=== PATIENT | male | born 1965 | race American Indian/Alaskan Native ===

== ENCOUNTER 2021-10-01 13:33 | Emergency (ER) | payer OTHER ==
[2021-10-01 13:45] VITALS: BP 160/77
--- NOTE | 2021-10-01 15:07 | Emergency Department Report ---
ED Headache HPI - General Chief Complaint: Headache Stated Complaint: HEADACES FOR 6 MONTHS Source: patient Exam Limitations: no limitations - History of Present Illness Initial Comments: 56-year-old male presents to the hospital complaining persistent headache since fall off a ladder 6 months ago. Patient fell off an 8 foot ladder and was initially seen in urgent care with subsequent transfer to [facility] questionable kidney stone where he received orthopedic surgery of a broken thumb. Patient did not receive a CAT scan of his head. Patient denies LOC after initial injury, nausea, vomiting, blurred vision, or focal weakness or numbness. Patient states he has had persistent daily headaches ranging from 5/10-10/10 in intensity. Exacerbated while looking at a computer. He denies problems with memory or concentration. He denies neck pain. He went to his primary care doctor affiliated with the [facility] and was told to come to the hospital for a CAT scan. Allergies/Adverse Reactions: Allergies No Known Allergies Allergy (Unverified 10/01/21 13:45) Home Medications: Ambulatory Orders Fluticasone [Flonase] 1 - 2 spray NS QDAY #7 day 10/01/21 Sodium Chloride [Saline Nasal [place]] 1 - 2 spray NS PRN PRN #1 bottle 10/01/21 ED Review of Systems ROS: Stated complaint: HEADACES FOR 6 MONTHS Other details as noted in HPI Comment: All other systems reviewed and negative ED Past Medical Hx - Medications Home Medications: Home Medications Medication Instructions Recorded Confirmed Last Taken Type Fluticasone [Flonase] 1 - 2 spray NS QDAY #7 day 10/01/21 Unknown Rx Sodium Chloride [Saline Nasal 1 - 2 spray NS PRN PRN #1 bottle 10/01/21 Unknown Rx [place]] ED Physical Exam - General Limitations: No Limitations - Other Other exam information: General: No acute distress Head: Atraumatic Eyes: normal appearance ENT: Moist mucous membranes Neck: Normal appearance, no midline tenderness Chest: Clear to auscultation bilaterally CV: Regular rate and rhythm Abdomen: Soft, normal bowel sounds, nontender, nondistended, no rebound or guarding Back: Normal inspection Extremity: Normal inspection, full range of motion Neuro: Alert O x 3, no facial asymmetry, speech clear, no gross motor sensory deficit, [id number] function intact Psych: Appropriate behavior Skin: No rash ED Course Vital Signs 10/01/21 13:42 Temperature 98.0 F Pulse Rate 71 Respiratory 18 Rate Blood Pressure 160/77 O2 Sat by Pulse 99 Oximetry ED Medical Decision Making - Radiology Data Radiology results: report reviewed CT head/brain wo con INDICATION / CLINICAL INFORMATION: 56 years Male; persistant headache after 8ft fall 6 month ago. TECHNIQUE: Routine CT head without contrast. All CT scans at this location are performed using CT dose reduction for ALARA by means of automated exposure control. COMPARISON: None. FINDINGS: BRAIN / INTRACRANIAL CONTENTS: The brain appears to demonstrate appropriate attenuation for age. The ventricular system is within normal limits in size and configuration. There is incidental calcification along the anterior falx. There is no clear CT evidence of acute intracranial hemorrhage or significant mass effect. ORBITS: No significant abnormality of visualized orbits. SINUSES / MASTOIDS: There is moderate mucosal thickening with small air-fluid levels along the maxillary sinuses bilaterally. Mild mucosal thickening is noted within the ethmoid and sphenoid sinuses. CRANIOCERVICAL JUNCTION: No significant abnormality. ADDITIONAL FINDINGS: None. IMPRESSION: 1. There is no CT evidence of acute intracranial process. 2. There is sinus inflammatory disease as described. - Medical Decision Making 56-year male complaining of global intermittent headaches since fall [address] without acute findings but incidental maxillary sinusitis noted. Patient will be treated for medically sinusitis. Patient declined pain medication in the ED P advised to take Motrin or Tylenol as needed for pain and follow-up with PMD and neurology - Differential Diagnosis Postconcussive headache, subdural, intracranial lesion Critical Care Time: No Critical care attestation.: If time is entered above; I have spent that time in minutes in the direct care of this critically ill patient, excluding procedure time. ED Disposition Clinical Impression: Post-traumatic headache, Maxillary sinusitis Disposition: 01 HOME / SELF CARE / HOMELESS Is pt being admited?: No Does the pt Need Aspirin: No Condition: Stable Instructions: Post-Concussion Syndrome, Sinusitis, Adult Additional Instructions: Take the medication as prescribed. Take Tylenol or Motrin as needed for pain. follow-up with your doctor and neurology. Return if symptoms worsen as indicated by your discharge instructions. Prescriptions: Fluticasone [Flonase] 1 - 2 spray NS QDAY #7 day Sodium Chloride [Saline Nasal [place]] 1 - 2 spray NS PRN PRN #1 bottle PRN Reason: Nasal Congestion Referrals: PRIMARY CARE, [Primary Care Provider] - 3-5 Days LEIDA FRANCISCO MD [Staff Physician] - 3-5 Days Time of Disposition: 16:24
--- NOTE | 2021-10-01 16:07 | Cat Scan Report ---
CT head/brain wo con INDICATION / CLINICAL INFORMATION: 56 years Male; persistant headache after 8ft fall 6 month ago. TECHNIQUE: Routine CT head without contrast. All CT scans at this location are performed using CT dos e reduction for ALARA by means of automated exposure control. COMPARISON: None. FINDINGS: BRAIN / INTRACRANIAL CONTENTS: The brain appears to demonstrate appropriate attenuation for age. The ventricular system is within normal limits in size and configuration. There is incidental calcificati on along the anterior falx. There is no clear CT evidence of acute intracranial hemorrhage or signifi cant mass effect. ORBITS: No significant abnormality of visualized orbits. SINUSES / MASTOIDS: There is moderate mucosal thickening with small air-fluid levels along the maxill yassine sinuses bilaterally. Mild mucosal thickening is noted within the ethmoid and sphenoid sinuses. CRANIOCERVICAL JUNCTION: No significant abnormality. ADDITIONAL FINDINGS: None. IMPRESSION: 1. There is no CT evidence of acute intracranial process. 2. There is sinus inflammatory disease as described. Signer Name: Curtis Charles MD Signed: 10/01/2021 4:02 PM Workstation Name: [id number]
== END 2021-10-01 17:03 | disposition home or self-care (01) ==
LOC: ED 13:33
DX: G44.309 Post-traumatic headache, unspecified, not intractable (principal); J32.0 Chronic maxillary sinusitis; Z79.899 Other long term (current) drug therapy
CPT/HCPCS: 70450; 99283